=== PATIENT | female | born 1995 | race Caucasian/White ===

== ENCOUNTER 2016-03-17 14:55 | Day surgery (SDC) | payer MEDICAID ==
[2016-03-17] MEDS ORDERED: LIDOCAINE 1% 5 ML SDV ONE (15:14)
[2016-03-17] MEDS ORDERED: PROPOFOL/EMULSION 500 MG/50 ML BOTTLE IV ONE (15:54)
[2016-03-17] MEDS ORDERED: fentaNYL 100 MCG/2 ML INJ ONE ×2 (15:54→17:06)
[2016-03-17] MEDS ORDERED: LIDOCAINE 2% 100 MG/5 ML SYR IVP ONE (15:59)
[2016-03-17] MEDS ORDERED: MIDAZOLAM 2 MG/2 ML VIAL ONE (16:03)
[2016-03-17] MEDS ORDERED: ONDANSETRON 4 MG/2 ML VIAL ONE (16:59)
--- NOTE | 2016-03-17 19:15 | GPN ---
[f rep st] PROCEDURE NOTE DATE OF PROCEDURE: 03/17/2016 PROCEDURE: Colonoscopy with biopsy. INDICATION: The patient is a 20-year-old female who recently had complaints of abdominal pain, no na usea, vomiting, as well as diarrhea. She had a CAT scan performed which did show inflammation of her descending and sigmoid colon. She does have a family history of Crohn disease in a second-degree re lative. She presents for further evaluation. CONSENT: Risks, benefits, and alternatives of the procedure were discussed in great deal with the poncho pineda. Risks of infection, bleeding, perforation, sedation were discussed. All questions were answe red. Informed consent was obtained. MEDICATIONS: Propofol. Please see Anesthesia record for details. ESTIMATED BLOOD LOSS: Insignificant. COLONOSCOPIC EVALUATION: A rectal exam was done and no palpable mass was felt. The scope was introd uced in the rectum and advanced to the cecum, where the ileocecal valve and appendiceal orifice were seen. The quality of her prep in the right colon just fair with some thick, adherent stool seen, whi ch was aggressively flushed and suctioned. The terminal ilium was intubated. It was normal in appearance. Biopsies were taken. The right colon appeared normal and biopsies were taken. There was no disruption of her vascular pat tern. In the left colon, no abnormalities were noted. Biopsies were taken. IMPRESSION: 1. Normal colonoscopy. 2. Normal terminal ileum. Biopsies taken. RECOMMENDATIONS: 1. Follow up on biopsy results. 2. Follow up in the office in 4 weeks. /[id number]/MODL
--- NOTE | 2016-03-17 19:21 | GPN ---
[f rep st] PROCEDURE NOTE DATE OF PROCEDURE: 03/17/2016 PROCEDURE: Esophagogastroduodenoscopy with biopsy. INDICATION: The patient is a 20-year-old female who presents for evaluation of nausea and vomiting. CONSENT: Risks, benefits, alternatives of the procedure were discussed in great detail with the susan ent. Risks of infection, bleeding, perforation, sedation were discussed. All questions were answere d. Informed consent was obtained. MEDICATIONS: Propofol. Please see Anesthesiology record for details. ESTIMATED BLOOD LOSS: Insignificant. ESOPHAGOGASTRODUODENOSCOPY EXAMINATION: The Olympus upper endoscope was introduced into the mouth an d advanced to the esophagus. Proximal and distal esophagus were normal in appearance. The stomach was entered and closely examined, including retroflexed views of angularis, cardia and fu ndus. The patient was noted to have a hiatal hernia. The mucosa in the antrum and body was erythema tous in a patchy distribution and biopsies were taken. The duodenal bulb and second portion of the duodenum were normal in appearance. A biopsy was taken t o rule out celiac sprue. IMPRESSION: 1. Gastritis, status post biopsies. 2. Biopsies taken to rule out celiac sprue. 3. Hiatal hernia. RECOMMENDATIONS: 1. Follow up on biopsy results. 2. Proceed with colonoscopy. /[id number]/MODL
== END 2016-03-17 18:15 | disposition home or self-care (01) ==
LOC: FSGY 14:55
PROVIDERS: ATTEND Internal Medicine Gastroenterology
PROC: 0DBF8ZX Excision of Right Large Intestine, Via Natural or Artificial Opening Endoscopic, Diagnostic (ICD-10-PCS; principal; 2016-03-17 16:30)
PROC: 0DB68ZX Excision of Stomach, Via Natural or Artificial Opening Endoscopic, Diagnostic (ICD-10-PCS; principal; 2016-03-17 16:30)
PROC: 0DB98ZX Excision of Duodenum, Via Natural or Artificial Opening Endoscopic, Diagnostic (ICD-10-PCS; principal; 2016-03-17 16:30)
DX: K29.70 Gastritis, unspecified, without bleeding (principal); K44.9 Diaphragmatic hernia without obstruction or gangrene
CPT/HCPCS: J2001; J2250; J2405; J2704; J3010

== ENCOUNTER 2016-03-30 18:13 | Emergency (ER) | payer MEDICAID ==
--- NOTE | 2016-03-30 18:42 | UCPHY ---
H & P Time Seen by Provider: 03/30/16 18:39 Patient Type: Established HPI/ROS: HPI: 20-year-old female presents to urgent care with chief concern right thumb pain and swelling. Onset at 1:45 p.m. when she slammed her thumb in the car door. Reports bruising, swelling, pain. Denies other injury at time of incident. Took Percocet with some improvement. Right-hand dominant. No weakness, numbness, or tingling. ROS:10 point review of systems is negative other than as stated in HPI Smoking Status: Never smoked Physical Exam: Vital signs stable, reviewed by me General: Awake, alert, calm, cooperative. No acute distress. Head: Normalocephalic. Atraumatic. EENT: PERRLA. EOMI. Neck: Supple, nontender. No midline tenderness, full ROM. Respiratory: Breathing unlabored. CV: Chest nontender, atraumatic. Distal pulses 2+. Brisk cap refill all extremities. GI: Deferred Neuro: Alert. Oriented x 3. Sensation intact all extremities. Skin: Skin warm, dry, intact. No ecchymosis, abrasions, or lacerations. Extremities: No discomfort to palpation of the right shoulder, elbow, wrist. Full ROM. Right hand with ecchymosis, swelling of right thumb only. Decreased range of motion and pain at the MCP J, proximal phalanx, IPJ, and distal phalanx. Constitutional: Initial Vital Signs Temperature (C) 36.9 C 03/30/16 18:30 Heart Rate 70 03/30/16 18:30 Respiratory Rate 16 03/30/16 18:30 Blood Pressure 119/76 03/30/16 18:30 O2 Sat (%) 98 03/30/16 18:30 O2 Delivery Mode Room Air Allergies/Adverse Reactions: metoclopramide HCl [From Reglan] Allergy (Verified 03/30/16 18:46) Home Medications: Medication Instructions Recorded Albuterol 03/30/16 Fluticasone Hfa 110 Mcg [Flovent 03/30/16 110 MCG Hfa MDI (*)] Medical Decision Making - Diagnostics Imaging: X-ray shows a fracture of the distal 1st metacarpal, intra-articular, the distal proximal phalanx, and the distal phalanx. Final report pending at time this dictation ED Course/Re-evaluation: Patient placed in a thumb spica splint. Neurovascular status intact after application Differential Diagnosis: Contusion, fracture Departure - Departure Disposition: Home, Routine, Self-Care Clinical Impression: Crush injury, Thumb fracture, First metacarpal bone fracture Condition: Good Instructions: Thumb Fracture (ED) Additional Instructions: Plan: You may use 600 mg of ibuprofen every 6 hours for fever, inflammation, or pain. Always take ibuprofen with food and stay well hydrated while taking. Do not exceed the maximum allowable dose in a 24 hour period which is 2400 mg. For more severe pain, may use 1 Percocet every 4 hours that you have at home-- Never drink or drive while taking this medication. This medication impairs decision making capacity so do not work or sign important documents while taking. This medication its constipating so drink plenty of fluids and consider an kypn-hde-tyrembr stool softener such as docusate sodium (Colace) while taking this medication. This medication has addictive properties. You should use the least amount for the shortest amount of time. [facility] do not refill narcotic pain medication prescriptions. This is a hospital policy. You will need to follow up as indicated for recheck for further narcotic refills. ice every 1-2 hours for 20 minutes for the the next 2-3 days Keep splint dry Keep arm elevated while at rest Minimize activity with the right thumb until you have been cleared by orthopedist Follow up with orthopedist Dr. Pacheco this week by or Thursday at the latest-When you call to schedule appointment, please let the office know you are an "ER follow up" appointment" Referrals: Andrew Simon DO [Primary Care Provider] - As per Instructions Derek Pacheco MD [Medical Doctor] - As per Instructions - PQRS PQRS Measurement: Not applicable
[2016-03-30 18:46] VITALS: BP 119/76; PULSE 70; RESP 16; TEMP 98.5; O2SAT 98
--- NOTE | 2016-03-30 19:39 | DX ---
RIGHT THUMB, THREE VIEWS HISTORY: Trauma, pain, smashed in door. FINDINGS: Oblique intraarticular fracture of the base of the right thumb distal phalanx corner extend ing into the interphalangeal joint with minimal displacement, 1 mm. No definite first metacarpal frac ture. IMPRESSION: Acute oblique intraarticular fracture of the right thumb distal phalanx base.
== END 2016-03-30 19:21 | disposition home or self-care (01) ==
LOC: CED 18:13
DX: S62.291A Other fracture of first metacarpal bone, right hand, initial encounter for closed fracture (principal); W23.0XXA Caught, crushed, jammed, or pinched between moving objects, initial encounter
CPT/HCPCS: 73140-PO; G0463-PO

== ENCOUNTER 2016-07-01 17:06 | Emergency (ER) | payer MEDICAID ==
[2016-07-01 17:13] VITALS: BP 118/78; TEMP 98.4
[2016-07-01] MEDS ORDERED: IPRATROPIUM/ALBUTEROL 3 ML DEYVIAL IH ONE (17:14)
[2016-07-01] MEDS ORDERED: predniSONE 20 MG TAB PO ONE (17:22)
[2016-07-01] MEDS ORDERED: ALBUTEROL 3 ML DEYVIAL IH ONE ×2 (18:13→18:38)
--- NOTE | 2016-07-01 18:41 | UCPHY ---
H & P Time Seen by Provider: 07/01/16 17:22 Patient Type: Established HPI/ROS: This patient complains of dyspnea that she attributes asthma with associated wheezing. She describes nasal congestion over the past 5 days over the past 3 days developed wheezing and shortness of breath. She has no albuterol inhaler without a spacer that she has been using without lasting improvement. She reports brief relief but has been increasing frequency of her inhaler without significant improvement and came in for evaluation. She explains when has mild asthma she only uses her inhaler 2 puffs twice a day or so has been using every 4 hours today. ROS: No fevers or chills. No other constitutional symptoms. HEENT: Nasal congestion but no other complaints. Pulmonary: No pleuritic pain. No hemoptysis or significant sputum production. She has occasional dry cough with her asthma which is similar to previous episodes. Cardiovascular: No chest pain or lightheadedness. No calf swelling or pain. GI: No complaints integumentary: No rash musculoskeletal: Patient complains of foot pain to the right forefoot. 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 She reports the pain is moderate intensity with slight swelling has been present for 2 days. Pain worsens with walking and notes no other exacerbating factors. 10 point ROS is otherwise negative. Past Medical/Surgical History: Mild asthma. No hospitalizations or ER visits in the last 6 months. Never admitted for asthma. Smoking Status: Never smoked Physical Exam: General Appearance: Pleasant petite young woman Alert, no distress. Eyes: Pupils equal and round no pallor or injection. ENT, Mouth: Mucous membranes moist. Respiratory: Moderate expiratory wheeze bilaterally. No rales or rhonchi noted. Cardiovascular: Regular rate and rhythm. No murmur gallop rub. No calf swelling or tenderness. Neurological: Alert with no focal deficits appreciated. Skin: Warm and dry, no rashes. Extremities are symmetrical, full range of motion. Atraumatic normal except for right foot Right foot: Patient has mild swelling to the forefoot with no significant erythema or skin changes. No warmth to touch. No significant swelling or pain at the 1st metatarsophalangeal joint. No toe abnormalities. No ankle swelling or pain. Psychiatric: Mood and affect normal DIFFERENTIAL DIAGNOSIS: After history and physical exam differential diagnosis was considered for asthma exacerbation, foot sprain, foot fracture, juvenile rheumatoid arthritis Constitutional: Initial Vital Signs Temperature (C) 36.9 C 07/01/16 17:10 Heart Rate 111 H 07/01/16 17:10 Respiratory Rate 20 07/01/16 17:10 Blood Pressure 118/78 07/01/16 17:10 O2 Sat (%) 91 L 07/01/16 17:10 O2 Delivery Mode Room Air Allergies/Adverse Reactions: metoclopramide HCl [From Reglan] Allergy (Verified 03/30/16 18:46) Home Medications: Medication Instructions Recorded Albuterol 03/30/16 Fluticasone Hfa 110 Mcg [Flovent 03/30/16 110 MCG Hfa MDI (*)] Albuterol Hfa Anes Only [Proair 2 puffs IH Q4 PRN #1 mdi 07/01/16 Hfa Icu (*)] predniSONE 40 mg PO DAILY #10 tab 07/01/16 Medical Decision Making - Diagnostics Imaging Results: Foot x-ray: Normal by my interpretation Imaging: I viewed and interpreted images myself ED Course/Re-evaluation: DuoNeb Prednisone 40 mg p. o. 2 more albuterol nebs finally with diminished wheeze increased aeration subjective improvement. Patient is placed in a postop shoe. I counseled regarding foot sprain Discussion: Patient presented with moderate asthma exacerbation improved with treatment. I think that her foot findings are attributable to his sprain from I counseled regarding this. - Data Points Medications Given: Discontinued Medications Albuterol (Proventil Neb) 3 ml IH EDNOW ONE Stop: 07/01/16 18:14 Last Admin: 07/01/16 18:19 Dose: 3 ml Albuterol (Proventil Neb) 3 ml IH EDNOW ONE Stop: 07/01/16 18:39 Last Admin: 07/01/16 18:41 Dose: 3 ml Albuterol/Ipratropium (Duoneb) 3 ml IH EDNOW ONE Stop: 07/01/16 17:15 Last Admin: 07/01/16 17:22 Dose: 3 ml Prednisone (Prednisone) 40 mg PO EDNOW ONE Stop: 07/01/16 17:23 Last Admin: 07/01/16 17:27 Dose: 40 mg Departure - Departure Disposition: Home, Routine, Self-Care Clinical Impression: Asthma exacerbation, Foot pain, right Condition: Good Instructions: Asthma (ED) Additional Instructions: Diagnosis: 1. Asthma exacerbation 2. Right foot pain Your foot x-ray is normal Plan: Prednisone as prescribed take in the morning after breakfast for the next 5 days Albuterol inhaler 2 puffs every 4 hours as needed for cough wheeze or shortness of breath Postop shoe and the foot feels improved Follow up with the [facility] for further evaluation No work until her symptoms improve. Call primary care physician to arrange follow-up appointment for a recheck sometime within the next 3-5 days. Go to the emergency department for any significant worsening despite treatment plan. Referrals: Andrew Simon, [Primary Care Provider] - As per Instructions Grover Whelan DPM [Doctor of Podiatric Medicine] - As per Instructions Stand Alone Forms: Work Excuse Prescriptions: Albuterol Hfa Anes Only [Proair Hfa Icu (*)] 2 puffs IH Q4 PRN #1 mdi PRN Reason: Wheezing predniSONE 40 mg PO DAILY #10 tab - PQRS PQRS Measurement: NA
[2016-07-01 19:07] VITALS: PULSE 130; RESP 18; O2SAT 96
== END 2016-07-01 19:12 | disposition home or self-care (01) ==
LOC: CED 17:06
DX: J45.901 Unspecified asthma with (acute) exacerbation (principal); M79.671 Pain in right foot
CPT/HCPCS: 73620-PO; 87880-PO; 99214-PO; G0463-PO

== ENCOUNTER 2016-11-01 22:42 | Inpatient (IN) | payer MEDICAID ==
[2016-11-01] MEDS ORDERED: NS 1,000 ML IV ONE (23:04)
[2016-11-01 23:11] LABS: % IMMATURE GRANULYOCYTES 0.2 % (0.0-1.1); ABSOLUTE IMMATURE GRANULOCYTES 0.03 10^3/uL (0.00-0.10); ADD DIFF? NO; ADD MORPH? NO; ADD SCAN? NO; ATYPICAL LYMPHOCYTE FLAG 20 (0-99); FRAGMENT RBC FLAG 0 (0-99); HEMATOCRIT 46.8 % (38.0-47.0); HEMOGLOBIN 15.9 g/dL (12.6-16.3); LEFT SHIFT FLG 0 (0-99); LIPEMIA HEMOLYSIS FLAG 90 (0-99); MEAN CELL HEMOGLOBIN 30.8 pg (27.9-34.1); MEAN CELL VOLUME 90.5 fL (81.5-99.8); MEAN PLATELET VOLUME 9.8 fL (8.7-11.7); PLATELET CLUMPS FLAG 0 (0-99); PLATELET COUNT 320 10^3/uL (150-400); RED BLOOD CELL COUNT 5.17 10^6/uL (4.18-5.33); RED CELL DISTRIBUTION WIDTH 13.1 % (11.5-15.2)
--- NOTE | 2016-11-01 23:19 | EDPHY ---
H & P Time Seen by Provider: 11/01/16 22:55 HPI/ROS: CC: Abdominal pain HPI: This 20-year-old female with past medical history of an abnormal CT scan which showed inflammation in her descending and sigmoid colon back in approximately February 2016 at [facility] with subsequent normal colonoscopy presents to the emergency department tonight with severe left-sided upper abdominal pain with nausea, vomiting, and diarrhea which started this afternoon. She states she gets this pain frequently but not this bad and normally she is able to push through it. She says the pain is a squeezing type of pain lasting from a few seconds to minutes at a time and it is rated at 8/10 , "worse than contractions." She has vomited approximately 4 or 5 times today and has had diarrhea as well. She has not noticed blood in the emesis or the stool. She denies fever or chills. She has not had dysuria. Standing makes the pain worse. Her last meal was approximately 7:00 p.m. but she vomited what she tried to eat. No ill contacts. The 1st day of her last menstrual period was last week and she finished her period yesterday. She is 1 para 1. REVIEW OF SYSTEMS: Constitutional: No fever, no chills. Eyes: No discharge. ENT: No sore throat. Respiratory: No cough, no shortness of breath. Cardiac: No chest pain, no palpitations. Gastrointestinal: per HPI. Genitourinary: No hematuria. Musculoskeletal: No back pain. Skin: No rashes. Neurological: No headache. Past Medical/Surgical History: Past medical history includes mild asthma Past surgical history includes an arm surgery and a colonoscopy Family history mother states she has gastroenteritis, maternal grandmother had his stomach problems, and maternal great grandmother had stomach cancer. There are ulcers on her father side. The GI consult in [place] states there is a family history of Crohn's disease. Allergies to Reglan which causes restlessness. Medications: none however she did take a Prilosec tablet today. Social History: Social history: denies tobacco products, denies alcohol, denies marijuana; she has 1 son; she is employed and works on cars. Smoking Status: Never smoked Physical Exam: General Appearance: Alert, moderate distress; tearful. Eyes: Pupils equal and round no pallor or injection. ENT, Mouth: Mucous membranes are moist. Respiratory: There are no retractions, lungs are clear to auscultation. Cardiovascular: Regular rate and rhythm. Gastrointestinal: Abdomen is soft with moderate tenderness to palpation across upper abdomen, Left greater than Right; no masses, bowel sounds normal; no rebound, guarding or rigidity. Neurological: Awake and alert, sensory and motor exams grossly normal. Skin: Warm and dry, no rashes. Musculoskeletal: Neck is supple nontender. Extremities are symmetrical, full range of motion. Psychiatric: Patient is oriented X 3, there is no agitation. DIFFERENTIAL DIAGNOSIS: After history and physical exam differential diagnosis was considered for but not limited to gastritis, biliary colic, inflammatory bowel disease, irritable bowel disease, gastroenteritis, bowel obstruction, constipation. Constitutional: Initial Vital Signs Temperature (C) 98.1 F 11/01/16 22:51 Heart Rate 79 11/01/16 22:51 Respiratory Rate 16 11/01/16 22:51 Blood Pressure 117/86 H 11/01/16 22:51 O2 Sat (%) 97 11/01/16 22:51 O2 Delivery Mode Room Air Allergies/Adverse Reactions: metoclopramide HCl [From Reglan] Allergy (Intermediate, Verified 11/01/16 22:58) Anxiety Home Medications: Medication Instructions Recorded Fluticasone Hfa 110 Mcg [Flovent 03/30/16 110 MCG Hfa MDI (*)] Albuterol Hfa Anes Only [Proair 2 puffs IH Q4 PRN #1 mdi 07/01/16 Hfa Icu (*)] Medical Decision Making - Diagnostics Imaging: Discussed imaging studies w/ call center nurse Radiologist (Thickening of the colon at the splenic flexure, the transverse colon and part of the descending colon with mild to moderate free fluid) ED Course/Re-evaluation: The patient was seen and examined. Vital signs were reviewed. Prior records were reviewed. An IV was started and the patient was given IV fluids with a total of 1 mg of Dilaudid and 8 mg of Zofran IVP throughout her stay in the ER. Her CBC was elevated at 12.59 with a slight left shift. Her comprehensive metabolic panel fluid including lipase was unremarkable. Her serum was negative. A CT scan of her abdomen and pelvis was read as colonic thickening at the splenic flexure, transverse colon, and part of the the descending colon per verbal report of Dr. Owens. Please refer to the final dictated report. She will be placed in observation under the hospitalist service for further evaluation and treatment. Consult/Admit Bed Type: Observation - Data Points Laboratory Results: Laboratory Results 11/01/16 22:55 11/01/16 22:55 11/01/16 11/01/16 11/01/16 22:55 22:55 22:55 WBC RBC Hgb Hct MCV MCH MCHC RDW Plt Count MPV Neut % (Auto) Lymph % (Auto) [place] % (Auto) Eos % (Auto) Baso % (Auto) Nucleat RBC Rel Count Absolute Neuts (auto) Absolute Lymphs (auto) Absolute Monos (auto) Absolute Eos (auto) Absolute Basos (auto) Absolute Nucleated RBC Immature Gran % Immature Gran # ESR Sodium 141 mEq/L mEq/L (134-144) Potassium 3.9 mEq/L mEq/L (3.5-5.2) Chloride 108 mEq/L mEq/L (97-110) Carbon Dioxide 23 mEq/l mEq/l (22-31) Anion Gap 10 mEq/L mEq/L (8-16) BUN 8 mg/dL mg/dL (7-23) Creatinine 0.5 mg/dL L mg/dL (0.6-1.0) Estimated GFR > 60 Glucose 93 mg/dL mg/dL (70-100) Calcium 9.2 mg/dL mg/dL (8.5-10.4) Total Bilirubin 0.5 mg/dL mg/dL (0.1-1.4) Conjugated Bilirubin 0.3 mg/dL mg/dL (0.0-0.5) Unconjugated Bilirubin 0.2 mg/dL mg/dL (0.0-1.1) AST 25 IU/L IU/L (14-46) ALT 34 IU/L IU/L (9-52) Alkaline Phosphatase 67 IU/L IU/L (38-126) C-Reactive Protein < 5.0 mg/L mg/L (<10.0) Total Protein 6.8 g/dL g/dL (6.3-8.2) Albumin 4.1 g/dL g/dL (3.5-5.0) Lipase 137 IU/L IU/L (23-300) Beta HCG, Qual NEGATIVE 11/01/16 22:55 WBC 12.59 10^3/uL H 10^3/uL (3.80-9.50) RBC 5.17 10^6/uL 10^6/uL (4.18-5.33) Hgb 15.9 g/dL g/dL (12.6-16.3) Hct 46.8 % % (38.0-47.0) MCV 90.5 fL fL (81.5-99.8) MCH 30.8 pg pg (27.9-34.1) MCHC 34.0 g/dL g/dL (32.4-36.7) RDW 13.1 % % (11.5-15.2) Plt Count 320 10^3/uL 10^3/uL (150-400) MPV 9.8 fL fL (8.7-11.7) Neut % (Auto) 68.1 % % (39.3-74.2) Lymph % (Auto) 22.6 % % (15.0-45.0) [place] % (Auto) 6.6 % % (4.5-13.0) Eos % (Auto) 2.1 % % (0.6-7.6) Baso % (Auto) 0.4 % % (0.3-1.7) Nucleat RBC Rel Count 0.0 % % (0.0-0.2) Absolute Neuts (auto) 8.56 10^3/uL H 10^3/uL (1.70-6.50) Absolute Lymphs (auto) 2.85 10^3/uL 10^3/uL (1.00-3.00) Absolute Monos (auto) 0.83 10^3/uL H 10^3/uL (0.30-0.80) Absolute Eos (auto) 0.27 10^3/uL 10^3/uL (0.03-0.40) Absolute Basos (auto) 0.05 10^3/uL 10^3/uL (0.02-0.10) Absolute Nucleated RBC 0.00 10^3/uL 10^3/uL (0-0.01) Immature Gran % 0.2 % % (0.0-1.1) Immature Gran # 0.03 10^3/uL 10^3/uL (0.00-0.10) ESR 3 MM/HR MM/HR (0-20) Sodium Potassium Chloride Carbon Dioxide Anion Gap BUN Creatinine Estimated GFR Glucose Calcium Total Bilirubin Conjugated Bilirubin Unconjugated Bilirubin AST ALT Alkaline Phosphatase C-Reactive Protein Total Protein Albumin Lipase Beta HCG, Qual Medications Given: Discontinued Medications Hydromorphone HCl (Dilaudid) 0.5 mg IVP EDNOW ONE Stop: 11/01/16 23:21 Last Admin: 11/01/16 23:27 Dose: 0.5 mg Hydromorphone HCl (Dilaudid) 0.5 mg IVP EDNOW ONE Stop: 11/02/16 01:30 Last Admin: 11/02/16 01:40 Dose: 0.5 mg Sodium Chloride (Ns) 1,000 mls @ 0 mls/hr IV EDNOW ONE; Wide Open PRN Reason: Protocol Stop: 11/01/16 23:05 Last Admin: 11/01/16 23:07 Dose: 1,000 mls Ondansetron HCl (Zofran) 4 mg IVP EDNOW ONE Stop: 11/01/16 23:21 Last Admin: 11/01/16 23:27 Dose: 4 mg Ondansetron HCl (Zofran) 4 mg IVP EDNOW ONE Stop: 11/02/16 01:39 Last Admin: 11/02/16 01:40 Dose: 4 mg Departure - Departure Disposition: [facility] Inpatient Acute Clinical Impression: Abdominal pain, Colonic thickening Condition: Good
[2016-11-01] MEDS ORDERED: ONDANSETRON 4 MG/2 ML VIAL IVP ONE (23:20)
[2016-11-01] MEDS ORDERED: HYDROmorphONE/DILAUDID 1 MG/ML SYR IVP ONE (23:20)
[2016-11-01 23:24] LABS: ALANINE AMINOTRANSFERASE 34 IU/L (9-52); ALBUMIN 4.1 g/dL (3.5-5.0); ALKALINE PHOSPHATASE 67 IU/L (38-126); ANION GAP 10 mEq/L (8-16); ASPARTATE AMINOTRANSFERASE 25 IU/L (14-46); BILIRUBIN,TOTAL 0.5 mg/dL (0.1-1.4); BILIRUBIN-CONJUGATED 0.3 mg/dL (0.0-0.5); BILIRUBIN-UNCONJUGATED 0.2 mg/dL (0.0-1.1); CALCIUM 9.2 mg/dL (8.5-10.4); CARBON DIOXIDE 23 mEq/l (22-31); CHLORIDE 108 mEq/L (97-110); CREATININE 0.5 mg/dL (0.6-1.0); GLOMERULAR FILTRATION RATE > 60; GLUCOSE 93 mg/dL (70-100); POTASSIUM 3.9 mEq/L (3.5-5.2); SODIUM 141 mEq/L (134-144); TOTAL PROTEIN 6.8 g/dL (6.3-8.2)
[2016-11-02] MEDS ORDERED: IOPAMIDOL (ISOVUE-300) 100 ML BTL ONE (00:23)
[2016-11-02 00:50] LABS: SEDIMENTATION RATE 3 MM/HR (0-20)
[2016-11-02] MEDS ORDERED: HYDROmorphONE/DILAUDID 1 MG/ML SYR IVP ONE (01:29)
[2016-11-02] MEDS ORDERED: ONDANSETRON 4 MG/2 ML VIAL ONE (01:36)
[2016-11-02] MEDS ORDERED: ONDANSETRON 4 MG/2 ML VIAL IVP ONE (01:38)
[2016-11-02] MEDS ORDERED: ONDANSETRON DISINTEGRATING 4 MG TAB PO PRN (08:07)
--- NOTE | 2016-11-02 08:08 | GHP ---
[f rep st] HISTORY AND PHYSICAL DATE OF ADMISSION: 11/01/2016 CHIEF COMPLAINT: Abdominal pain. HISTORY OF PRESENT ILLNESS: This is a 20-year-old female, who for some time has had a history of in termittent episodes that consist of abdominal pain, it is mostly epigastric, as well as nausea, and some vomiting, and diarrhea. She has not seen any blood in her stool though. This happens about ev bari other week and lasts for a couple days. They have been increasing in severity lately. Yesterda y, she developed the same symptoms, but they were worse than normal. Again, she has not had any blo od in her stool. No fevers or chills. Patient had similar episode in February of 2016, at [facility], where she had a CAT scan gabriel t showed inflammatory changes in the colon. She had a colonoscopy, but that was 2 weeks after her s ymptoms had resolved, and that was negative and biopsies also were negative. REVIEW OF SYSTEMS: A 10-point review of systems was reviewed and other than stated above was negati ve. PAST MEDICAL HISTORY: Asthma. MEDICATIONS: Reviewed. SOCIAL HISTORY: No smoking. Does have a child. FAMILY HISTORY: Some stomach problems on her mother side, and there is a family history of Crohn di sease as well. PHYSICAL EXAM: VITAL SIGNS: Afebrile, blood pressure is 118/71, heart rate is 67, oxygen saturatio n 97% on 2 L. GENERAL: The patient is well developed, in no apparent distress. HEENT: Nonicteric sclerae. Extraocular movements intact. Moist mucous membranes. NECK: Supple. No thyromegaly. LUNGS: Good effort. Clear to auscultation bilaterally. CARDIOVASCULAR: Regular rate and rhythm. No murmurs or gallops. ABDOMEN: Positive bowel sounds. Soft. Mild epigastric tenderness. No re bound or guarding. EXTREMITIES: No clubbing, cyanosis, or edema. SKIN: Without rash, dry, intact . NEUROLOGIC: Alert and oriented x3. Moving all 4 extremities equally. PSYCH: Normal mood and affect. LABS: White blood cell count slightly elevated at 12. Chemistries normal. Beta HCG is negative. CT scan of the abdomen and pelvis shows inflammatory changes, which is marked thickening and inflamm ation of the transverse colon to the splenic flexure, and [id number] ascites. ASSESSMENT: This is a 20-year-old female with a history of intermittent abdominal pain, suspicious for inflammatory bowel disease, presenting with worsening episode, and CT scan changes. PLAN: Rule out inflammatory bowel disease, although, this is a similar situation to February, the c olonoscopy at that point was done several weeks after her symptoms and was negative. I think that w ith the marked changes on her CAT scan, and a lack of diagnosis, would consider repeat colonoscopy d uring this admission to get a diagnosis. I will contact gastroenterology this morning. Her symptom s are improving. We will continue IV fluids, and pain and nausea control. /[id number]/MODL
[2016-11-02] MEDS ORDERED: D5W 1/2 NS W/ 20 KCl/L 1,000 ML IV SCH (08:15)
[2016-11-02] MEDS ORDERED: ALBUTEROL HFA ANES ONLY 200 PUFFS/8.5 GM MDI IH PRN (10:13)
[2016-11-02] MEDS ORDERED: FLUTICASONE HFA 110 MCG MDI IH PRN (10:13)
[2016-11-02] MEDS ORDERED: ALBUTEROL 200 PUFFS/18 GM MDI IH PRN (10:21)
[2016-11-02] MEDS ORDERED: GOLYTELY 4000 ML BTL PO ONE ×2 (10:56→15:15)
--- NOTE | 2016-11-02 11:01 | HOSPPROG ---
Hospitalist Progress Note Assessment/Plan: 20y female with abd pain. D/W Gi and Dr Siddiqui. #Abd pain abnormal CT plan for colonoscopy in am bowel prep today #N/V/D none since admission #Dispo likely after colonoscopy cont to follow Subjective: Still having abd pain. Sleeping. Objective: Vital Signs Temp Pulse Resp BP Pulse Ox 36.9 C 52 L 14 110/56 L 98 11/02/16 07:52 11/02/16 07:52 11/02/16 07:52 11/02/16 07:52 11/02/16 07:52 - Physical Exam Constitutional: appears nourished, uncomfortable Eyes: PERRL, anicteric sclera Ears, Nose, Mouth, Throat: moist mucous membranes, hearing normal Cardiovascular: No JVD, No edema Respiratory: no respiratory distress Gastrointestinal: tenderness, No ascites Skin: warm, normal color Musculoskeletal: full muscle strength Neurologic: AAOx3 Psychiatric: not anxious, not encephalopathic ICD10 Worksheet Patient Problems: Problems Problem Status Onset Abdominal pain Acute Colonic thickening Acute
[2016-11-02] MEDS: HYDROmorphONE/DILAUDID 1 MG/ML SYR IVP PRN ×3 (11:52→21:03)
[2016-11-02] MEDS: ONDANSETRON 4 MG/2 ML VIAL IVP PRN (17:23)
[2016-11-02] MEDS: ACETAMINOPHEN 325 MG TAB PO PRN (20:05)
[2016-11-02] MEDS ORDERED: PROMETHAZINE HCL 25 MG/ML INJ IVP PRN (20:45)
[2016-11-03] MEDS ORDERED: PROPOFOL/EMULSION 500 MG/50 ML BOTTLE IV ONE (09:51)
[2016-11-03] MEDS ORDERED: MIDAZOLAM 2 MG/2 ML VIAL ONE (09:51)
--- NOTE | 2016-11-03 10:04 | PDANEPAE ---
ANE Past Medical History - Cardiovascular History Hx Hypertension: No Hx Arrhythmias: No Hx Chest Pain: No Hx Coronary Artery / Peripheral Vascular Disease: No Hx CHF / Valvular Disease: No Hx Palpitations: No Cardiovascular History Comment: hx heart murmur, no audible in preop - Pulmonary History Hx COPD: No Hx Asthma/Reactive Airway Disease: Yes Hx Recent Upper Respiratory Infection: No Hx Oxygen in Use at Home: No Hx Sleep Apnea: No Sleep Apnea Screening Result - Last Documented: Negative Pulmonary History Comment: asthma, used albuterol in preop - Neurologic History Hx Cerebrovascular Accident: No Hx Seizures: No Hx Dementia: No - Endocrine History Hx Diabetes: No - Renal History Hx Renal Disorders: Yes Renal History Comment: kidney stones while - Liver History Hx Hepatic Disorders: No - Neurological & Psychiatric Hx Hx Neurological and Psychiatric Disorders: No - Cancer History Hx Cancer: No - GI History Hx Gastrointestinal Disorders: Yes Gastrointestinal History Comment: acid reflux - Chronic Pain History Chronic Pain: No - Surgical History Prior Surgeries: arm broken -conscious sedation ANE Patient History - Allergies Allergies/Adverse Reactions: metoclopramide HCl [From Reglan] Allergy (Intermediate, Verified 11/01/16 22:58) Anxiety - Home Medications Home Medications: Albuterol Hfa Anes Only [Proair Hfa Icu (*)] 1 - 2 puffs IH Q4-6PRN PRN [Last Taken Unknown] Fluticasone Hfa 110 Mcg [Flovent 110 MCG Hfa MDI (*)] 2 puffs IH DAILY PRN 11/02 [Last Taken Unknown] - Smoking Hx Smoking Status: Never smoked ANE Labs/Vital Signs - Labs Result Diagrams: 11/01/16 22:55 11/01/16 22:55 - Vital Signs Blood Pressure: 85/57 Heart Rate: 58 Respiratory Rate: 12 O2 Sat (%): 96 Height: 149.86 cm Weight: 49.668 kg ANE Physical Exam - Airway Mallampati Score: Class 1 Mouth exam: normal dental/mouth exam - Pulmonary Pulmonary: no respiratory distress, no rales or rhonchi, clear to auscultation - Cardiovascular Cardiovascular: regular rate and rhythym, no murmur, rub, or gallop - ASA Status ASA Status: I ANE Anesthesia Plan Anesthesia Plan: MAC
[2016-11-03] MEDS ORDERED: LR 500 ML IV PRN (10:05)
[2016-11-03] MEDS ORDERED: ONDANSETRON 4 MG/2 ML VIAL IVP PRN (10:05)
[2016-11-03] MEDS ORDERED: DEXAMETHASONE 4 MG/ML VIAL IVP PRN (10:05)
[2016-11-03] MEDS ORDERED: NALOXONE HCL 0.4 MG/ML INJ IVP PRN (10:05)
--- NOTE | 2016-11-03 10:31 | POSTANESTH ---
Post Anesthetic Evaluation Cardiovascular Status: Normal, Stable Respiratory Status: Normal, Stable Level of Consciousness/Mental Status: Can Participate in Eval, Mildly Sleepy, Arousable Pain Control: Adequate, Prn Tx Ordered Nausea/Vomiting Control: Adequate, Prn Tx Ordered Complications Possibly Related to Anesthesia: None Noted
--- NOTE | 2016-11-03 10:40 | SUROPNOTE ---
[facility] Operative Report - Surgery Colonoscopy Normal colon and terminal ilium Biopsies taken A/ Cause of sxm unclear no e/o IBD, consider other autoimmune or rheumatologic process (lupus, vasculitis?) vs IBS P/ Supportive care with IVF, antiemetics, trial of Levsin
[2016-11-03] MEDS ORDERED: fentaNYL 100 MCG/2 ML INJ ONE ×2 (10:53→11:25)
[2016-11-03] MEDS: fentaNYL 100 MCG/2 ML INJ IVP PRN ×4 (11:00→11:46)
--- NOTE | 2016-11-03 11:13 | GCON ---
[f rep st] CONSULTATION COLONOSCOPY REPORT DATE OF CONSULTATION: 11/03/2016 REFERRING PHYSICIAN: Nohemi Ha NP CHIEF COMPLAINT: Abdominal pain. HISTORY OF PRESENT ILLNESS: I am asked to see this patient in consultation by Nohemi Ha, for chi ef complaint of abdominal pain and diarrhea. She is a 20-year-old previously seen and evaluated by my partner, Dr. Phillips, for similar symptoms. In March of this year, she underwent a colonoscopy th at appeared normal, although she did have a CT scan prior that showed suggestion of possible proctit is and thickening of the left colon. She states that for the past year or so she has been having "f lare" of these symptoms where she gets diarrhea, abdominal pain, nausea, and vomiting. She never se es blood in her stools. There are never fevers. She had a bout again with significant enough pain that she came to the emergency room. CT scan showed some thickening involving the sigmoid to spleni c flexure. Ileum looked normal. The patient is having pain at this point, still with some nausea. She has no rashes, no joint pain. There is a family history for Crohn disease. She states that sh didier feels well in between these episodes. ALLERGIES: She is intolerant to Reglan. CURRENT MEDICATIONS: She takes Flovent and inhalers. PAST MEDICAL HISTORY: Noted for asthma. SOCIAL HISTORY: She does not smoke. FAMILY HISTORY: Some kind of abdominal symptom on her mother's side. Apparently a family history f or Crohn disease. REVIEW OF SYSTEMS: I performed a complete review of systems, which is negative, except for the pert inent positives and negatives noted above in the HPI. PHYSICAL EXAM: VITAL SIGNS: She is currently afebrile at 36.8. BP 85/77, pulse 58. CONSTITUTIONA L: She is alert and oriented. EYES: Have no scleral icterus. HEENT: No oral lesions. CARDIOVAS CULAR: Regular rate and rhythm. CHEST: Clear to auscultation bilaterally. ABDOMEN: Tender, but without rebound. No masses. EXTREMITIES: Normal. NEUROLOGIC: Nonfocal. SKIN: No obvious rashe s. LABORATORY DATA: Shows slightly elevated white count of 12 with hematocrit normal at 46.8, normal p latelets. Sed rate is normal at 3. Chemistry is essentially normal. CT scan of the abdomen shows some thickening involving the transverse colon to the splenic flexure w ith some ascites. ASSESSMENT: Patient with intermittent episodes of abdominal pain associated with diarrhea, nausea a nd vomiting; however, no blood in the stools. Concerning for possible inflammatory process. Patient did have a negative colonoscopy earlier this year, but it was not during a flare. I think it may b e reasonable to repeat endoscopy, given the CT scan findings to see if there are any active inflamma tory changes in the colon. PLAN: Will proceed with colonoscopy. Further recommendations to follow. Thank you for this consult. /[id number]/MODL
--- NOTE | 2016-11-03 11:18 | GPN ---
[f rep st] PROCEDURE NOTE DATE OF PROCEDURE: 11/03/2016 PROCEDURE PERFORMED: Colonoscopy with biopsy. INSTRUMENT USED: CELtrak colonoscope. MEDICINES GIVEN: Per anesthesiologist. INDICATIONS: Patient is a 20-year-old with recurrent episodes of abdominal pain, nausea, vomiting, diarrhea, referred for a colonoscopy with abnormal CT scan. Prior to procedure, exam performed incl uding auscultation of the heart and lungs within normal limits. Patient's mental status was appropr iate. Procedure was explained including the risks of bleeding, perforation, or effects of sedation. She gave her informed consent. FINDINGS: Patient was placed in left lateral decubitus position. Perianal exam performed and was n ormal. Instrument inserted in the rectum and advanced by direct visualization to the area of the ce cum, which was easily reached identified by the presence of the ileocecal valve, appendiceal orifice , and the confluence of the tenia. From this area, the scope was slowly withdrawn with inspection o f the colonic mucosa. The prep was adequate for examination. Terminal ilium was intubated and appe ared normal. The scope was slowly withdrawn with inspection of colonic mucosa. Of note, the coloni c mucosa appeared normal throughout the entire colon. Random biopsies were taken in the transverse and left side of the colon. Retroflexion revealed hemorrhoids. Scope was then straightened and rem eleanor from the patient who tolerated procedure well. Time spent was approximately 15 minutes. ASSESSMENT: Endoscopically normal-appearing colonoscopy without evidence of mucosal disease or coli tis. It is unclear the cause of CT scan findings, although at this point, cannot make the diagnosis for active inflammatory bowel disease. Could consider other autoimmune issues such as vasculitis o r lupus. I doubt relapsing Mediterranean fever as she has not had fever with this. PLAN: 1. Will await biopsies to assess for any underlying colitis or microscopic colitis. 2. Would treat symptomatically for now with any nausea, IV fluids, antidiarrheals until she resolve s from this episode. May consider further evaluation for an autoimmune process. From a GI standpoi nt, we can treat for functional symptoms. Consider Michael. Thank you for this consult. /[id number]/MODL
[2016-11-03] MEDS: HYOSCYAMINE SULFATE 0.125 MG TAB PO PRN ×2 (13:26→20:49)
--- NOTE | 2016-11-03 14:33 | HOSPPROG ---
Hospitalist Progress Note Assessment/Plan: 20y female with abd pain. D/W Gi, RN. #Abd pain abnormal CT colonoscopy today normal pain conts with clear liquids will evaluate gallbladder US and HIDA ordered #N/V/D conts with PO intake cont supportive care cont etiol #Dispo unclear, needs further workup for abd pain cont to follow Subjective: Still having significant abd pain with liquids. Some vomitiing. Objective: Vital Signs Temp Pulse Resp BP Pulse Ox 36.4 C 56 L 16 102/59 L 100 11/03/16 13:20 11/03/16 13:20 11/03/16 13:20 11/03/16 13:20 11/03/16 13:20 11/02/16 11/03/16 11/04/16 05:59 05:59 05:59 Intake Total 920 310 Balance 920 310 - Physical Exam Constitutional: appears nourished, uncomfortable Eyes: PERRL, anicteric sclera Ears, Nose, Mouth, Throat: moist mucous membranes, hearing normal Cardiovascular: regular rate and rhythym, No JVD Respiratory: no respiratory distress, reduced air movement Gastrointestinal: tenderness, No ascites, No distension Skin: warm, normal color Musculoskeletal: full muscle strength, no joint effusions Neurologic: AAOx3 Psychiatric: not anxious, not encephalopathic ICD10 Worksheet Patient Problems: Problems Problem Status Onset Abdominal pain Acute Colonic thickening Acute
[2016-11-03] MEDS: ACETAMINOPHEN 325 MG TAB PO PRN (15:25)
[2016-11-03] MEDS: ONDANSETRON 4 MG/2 ML VIAL IVP PRN (18:18)
[2016-11-03] MEDS: HYDROmorphONE/DILAUDID 1 MG/ML SYR IVP PRN (18:18)
--- NOTE | 2016-11-04 08:52 | HOSPPROG ---
Hospitalist Progress Note Assessment/Plan: Patient is a 20-year-old female who has had intermittent intermittent episodes of abdominal pain mainly epigastric. She has nausea and some vomiting with associated diarrhea. Today is my 1st encounter with the patient. Chart reviewed. #Abd pain abnormal CT colonoscopy stable pain ongoing US shows some ascites and left pleural effusion HIDA pending trial of Levsin #ascites unclear of the etiology of this may have some type of autoimmune process that needs f/u biopsies pending and results available likely next week #N/V/D continue supportive care #Dispo f/u with HIDA scan/ will aim to dc later today if she can eat and drink/ will recommend f/u with a learning and development analyst to see if she has some type of autoimmune disease causing her symptoms Subjective: Jumana is frustrated about no specific answers with her abdominal pain. Says the pain moves across her lower abdomen area. Objective: Vital Signs Temp Pulse Resp BP Pulse Ox 36.6 C 63 14 107/61 97 11/03/16 22:10 11/03/16 22:10 11/03/16 22:10 11/03/16 22:10 11/03/16 22:10 11/03/16 11/04/16 11/05/16 05:59 05:59 05:59 Intake Total 920 310 Balance 920 310 - Physical Exam Constitutional: no apparent distress, other (slender) Eyes: PERRL Ears, Nose, Mouth, Throat: hearing normal Cardiovascular: regular rate and rhythym Respiratory: no respiratory distress Gastrointestinal: normoactive bowel sounds, soft, non-tender abdomen Skin: warm, normal color Musculoskeletal: full muscle strength Neurologic: AAOx3 Psychiatric: interacting appropriately ICD10 Worksheet Patient Problems: Problems Problem Status Onset Abdominal pain Acute Colonic thickening Acute
[2016-11-04 09:59] VITALS: BP 120/62; PULSE 57; RESP 16; TEMP 99.1; O2SAT 96
[2016-11-04] MEDS ORDERED: SINCALIDE 5 MCG VIAL IJ ONE (10:39)
--- NOTE | 2016-11-04 12:55 | SOAPPROG ---
SOAP Progress Note Assessment/Plan: Assessment: Abd pain abnormal CT scan but no inflammatory changes seen on colonoscopy. Consider other inflammatory or autoimmune process Plan: Await biopsy results Supportive care for symptoms OK to d/c when taking PO and pain controlled Suggest rheum consult Will sign off 11/04/16 12:53 Objective: Vital Signs Temp Pulse Resp BP Pulse Ox 37.3 C 57 L 16 120/62 96 11/04/16 08:00 11/04/16 08:00 11/04/16 08:00 11/04/16 08:00 11/04/16 08:00 11/03/16 11/04/16 11/05/16 05:59 05:59 05:59 Intake Total 920 310 Balance 920 310 Physical Exam - Physical Exam General Appearance: WD/WN Respiratory: No respiratory distress Cardiac/Chest: regular rate, rhythm Abdomen: non-tender, No distended ICD10 Worksheet Patient Problems: Problems Problem Status Onset Abdominal pain Acute Colonic thickening Acute
--- NOTE | 2016-11-04 17:39 | ASDISCHSUM ---
Discharge Information Plan Status:Home with No Needs Medically Cleared to Leave: Discharge Date:11/04/2016 03:56 PM CM D/C Disposition:Home, Routine, Self-Care ADT D/C Disposition:Home, Routine, Self-Care Projected Discharge Date:11/04/2016 03:56 PM Transportation at D/C:Family Discharge Delay Reason: Follow-Up Date:11/04/2016 03:56 PM Discharge Slot: Final Diagnosis: Placement Information Patient Contact Information Contact Name:IRON Relationship:Grandparent Address: City: [facility] Phone: [facility]/[place] Code: Email: Financial Information Financial Class:MD Primary Plan Desc:[employer] [place] Primary Plan Number:[id number] Secondary Plan Desc: Secondary Plan Number: Assessment Information Intervention Information
--- NOTE | 2016-11-04 19:23 | GDS ---
[f rep st] DISCHARGE SUMMARY DISCHARGE DIAGNOSES: 1. Abdominal pain. 2. Ascites. 3. Nausea vomiting and diarrhea. CONSULTATIONS: Dr. Liz Pittman. BRIEF HISTORY: The patient is a 20-year-old female, who has had intermittent episodes of abdominal pain. It is mainly in the epigastric area. She also has associated nausea, vomiting, and diarrhea. She has never seen any blood in her stool. She had a similar episode February 2016. She was seen at [facility] , and had a CT scan that showed inflammatory changes in the colon. During this admission she had a CT of the abdomen that showed marked thickening of the transverse colon through the splenic flexure with surrounding inflammation ascites to consider colitis or consider Crohn's disease. She had no evidence of appendicitis, abscess, or bowel obstruction. She was subsequently seen and evaluated by Dr. Pittman with Gastroenterology. She had a colonoscopy performed. It was normal appearing without any evidence of mucosal disease or colitis. In addition, she had an abdominal ultrasound performed, which showed a mild amount of ascites with small right pleural effusion noted. She had no evidence of gallstones. A HIDA scan was performed, which was normal HIDA scan and normal ejection fraction. Today, she is able to eat small amounts of food. Reviewed her care with Dr. Pittman, who recommended that she get further evaluation by a cinder dump crane operator to see if this is an autoimmune process. HOSPITAL COURSE: 1. Abdominal pain: She is eating and drinking this afternoon. She will get a prescription of Levsin and Zofran to see if this helps her symptoms. 2. Ascites: I am unclear of the etiology of this. In addition, she has a small effusion. Will have her get further evaluation by a cinder dump crane operator. 3. Nausea, vomiting, diarrhea. None further. PENDING LABS: Multiple biopsies are pending. CONDITION ON DISCHARGE: Stable. Blood pressure is 107/61, O2 sats on room air 97%, respiratory rate is 14, pulse 63, temperature is 36.6 Celsius. MEDICATIONS AT DISCHARGE: Please see the EMR. DISCHARGE INSTRUCTIONS: 1. Follow up with cinder dump crane operator sooner than later. 2. Follow up with Dr. Simon and get further evaluation of her ascites and effusion. Greater than 30 minutes discharging and coordinating the patient's care. /[id number]/MODL MTDD
== END 2016-11-04 15:56 | disposition home or self-care (01) | DRG 392 ==
LOC: CED 22:42 → CEDHOLD 11-02 01:34 → F3E 11-02 03:00 → OBSVTOIN 11-02 08:07
PROVIDERS: ADMIT Internal Medicine; ATTEND Internal Medicine
PROC: 0DBG8ZX Excision of Left Large Intestine, Via Natural or Artificial Opening Endoscopic, Diagnostic (ICD-10-PCS; principal; 2016-11-03 10:00)
PROC: 0DBL8ZX Excision of Transverse Colon, Via Natural or Artificial Opening Endoscopic, Diagnostic (ICD-10-PCS; principal; 2016-11-03 10:00)
CPT/HCPCS: 74177-PO; 80048-PO; 80076-PO; 83690-PO; 84703-PO; 85025-PO; 85652-PO; 96374; A9537; J1170; J2250; J2405; J2550; J2704; J3010; Q9967

== ENCOUNTER 2016-11-29 19:14 | Emergency (ER) | payer MEDICAID ==
[2016-11-29 19:25] VITALS: RESP 16; TEMP 98.2
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
[2016-11-29 20:50] VITALS: BP 128/65; PULSE 85; O2SAT 96
== END 2016-11-29 20:55 | disposition home or self-care (01) ==
LOC: CED 19:14
DX: R60.9 Edema, unspecified (principal); J45.909 Unspecified asthma, uncomplicated
CPT/HCPCS: 73110-PO; 73130-PO

== ENCOUNTER 2016-12-09 19:15 | Emergency (ER) | payer MEDICAID ==
[2016-12-09 19:25] VITALS: TEMP 98.1
[2016-12-09] MEDS ORDERED: DEXAMETHASONE 10 MG/ML VIAL IVP ONE (19:34)
[2016-12-09] MEDS ORDERED: ONDANSETRON 4 MG/2 ML VIAL IVP ONE (19:43)
[2016-12-09] MEDS ORDERED: NS 1,000 ML IV ONE (19:43)
[2016-12-09] MEDS ORDERED: KETOROLAC 15 MG/1 ML SDV IVP ONE ×2 (19:43→20:47)
[2016-12-09 20:04] LABS: % IMMATURE GRANULYOCYTES 0.1 % (0.0-1.1); ABSOLUTE IMMATURE GRANULOCYTES 0.01 10^3/uL (0.00-0.10); ADD DIFF? NO; ADD MORPH? NO; ADD SCAN? NO; ATYPICAL LYMPHOCYTE FLAG 20 (0-99); FRAGMENT RBC FLAG 0 (0-99); HEMATOCRIT 35.7 % (38.0-47.0); HEMOGLOBIN 11.9 g/dL (12.6-16.3); LEFT SHIFT FLG 0 (0-99); LIPEMIA HEMOLYSIS FLAG 80 (0-99); MEAN CELL HEMOGLOBIN 30.8 pg (27.9-34.1); MEAN CELL HEMOGLOBIN CONCENTR. 33.3 g/dL (32.4-36.7); MEAN CELL VOLUME 92.5 fL (81.5-99.8); MEAN PLATELET VOLUME 9.5 fL (8.7-11.7); PLATELET CLUMPS FLAG 0 (0-99); PLATELET COUNT 247 10^3/uL (150-400); RED BLOOD CELL COUNT 3.86 10^6/uL (4.18-5.33); RED CELL DISTRIBUTION WIDTH 13.6 % (11.5-15.2)
[2016-12-09] MEDS ORDERED: FAMOTIDINE 20 MG/2 ML SDV IVP ONE (20:47)
--- NOTE | 2016-12-09 21:05 | EDPHY ---
H & P Time Seen by Provider: 12/09/16 19:24 HPI/ROS: This patient complains of facial edema and headache. She explains that she awakened this morning with facial swelling initially in the right periorbital area and through the day and extended across the bridge of her nose to the left periorbital region as well and slightly to her forehead. She reports initially having no headache, only the swelling and no association pain but she gradually developed a frontal headache that is throbbing in nature 7/10 intensity, worse with movement associated with hyperacusis, similar to prior migraine headaches. She drink some caffeine-a Pepsi in a Tea in hopes of improving her headache as this typically works for her migraines without improvement and came in for evaluation of the facial swelling and headache. Her boyfriend drove her in by private vehicle for evaluation. ROS: No fevers or chills. No other constitutional symptoms HEENT: No trauma. While she has a right cheek piercing an nose piercing these are longstanding with no so symptoms at the site of the piercings. She has no recent URI symptoms or nasal congestion. She noticed no sinus pain or pressure prior to the onset of the facial swelling. She does wear makeup-eye makeup Neuro: No visual changes. No numbness tingling or focal weakness. No confusion. Psychiatric: She is anxious with her symptoms. Integumentary: The patient has acne on her forehead but denies any significant pain at the sites of the acne. No swelling elsewhere Pulmonary: The patient felt some mild dyspnea that reminded her of her asthma symptoms on the way to the clinic in use albuterol inhaler in the car with resolution of her dyspnea. Cardiovascular: No lightheadedness or heart palpitations. No chest pain. GI: She complains of nausea accompany her headache which often occurs with her migraines. No vomiting. No abdominal pain. Musculoskeletal: Neck pain. No trauma. Complete review of symptoms is otherwise negative. Past Medical/Surgical History: Asthma Migraine headaches Smoking Status: Never smoked Physical Exam: Physical exam: Vital signs are normal General: Patient is in no acute distress. HEENT: Is no external evidence of trauma on exam. She has angioedema in the periorbital region bilaterally extending over the bridge of her nose. There is a piercing the right cheek without erythema or fluctuance. No tenderness at that site. She had a nose piercing without tenderness. Oropharynx: No angioedema. No dysphonia, drooling or stridor. Nose atraumatic. Ears: Clear bilaterally with no hemotympanum. Oropharynx: No dental trauma or malocclusion. No intraoral lacerations. I appreciate no significant sinus tenderness to percussion. Eyes: Pupils are equal and reactive to light. Extraocular motions are intact. Optic fundi: Clear with no papilledema or hemorrhage. Lungs: Clear to auscultation bilaterally Neck: Supple no meningismus. Cardiac: Regular rate and rhythm no murmur gallop or rub. Abdomen: Soft nontender no organomegaly Neuro: GCS of 15. Cranial nerves II through XII intact. Cerebellar exam is normal as judged by symmetric rapid hand movements bilaterally. No pronator drift. No sensory or motor deficits are appreciated. Skin: [id number] acne to the upper forehead without significant tenderness fluctuance, erythema or warmth to touch. Initial differential diagnosis: Allergic angioedema likely from makeup, Migraine, tension headache, sinusitis, doubt cellulitis from piercing or acne Constitutional: Initial Vital Signs Temperature (C) 36.7 C 12/09/16 19:23 Heart Rate 83 12/09/16 19:23 Respiratory Rate 16 12/09/16 19:23 Blood Pressure 128/94 H 12/09/16 19:23 O2 Sat (%) 99 12/09/16 19:23 O2 Delivery Mode Room Air Allergies/Adverse Reactions: metoclopramide HCl [From Reglan] Allergy (Intermediate, Verified 12/09/16 19:23) Anxiety Home Medications: Medication Instructions Recorded Albuterol Hfa Anes Only [Proair 1 - 2 puffs IH Q4-6PRN PRN 11/02/16 Hfa Icu (*)] Ondansetron Odt [Zofran Odt] 4 - 8 mg PO Q4PRN PRN #4 tab 12/09/16 diphenhydrAMINE [Benadryl 25 MG 25 mg PO 12/09/16 (*)] predniSONE 40 mg PO DAILY #8 tab 12/09/16 MDM/Departure - MDM Diagnostics: CBC reveals normal white blood cell count. A very mild anemia. Medications Given: Discontinued Medications Dexamethasone (Decadron Injection) 10 mg IVP EDNOW ONE Stop: 12/09/16 19:35 Last Admin: 12/09/16 19:38 Dose: 10 mg Diphenhydramine HCl (Benadryl Injection) 25 mg IVP EDNOW ONE Stop: 12/09/16 19:43 Last Admin: 12/09/16 19:55 Dose: 25 mg Famotidine (Pepcid) 20 mg IVP EDNOW ONE Stop: 12/09/16 20:48 Last Admin: 12/09/16 20:57 Dose: 20 mg Sodium Chloride (Ns) 1,000 mls @ 0 mls/hr IV ONCE ONE; Wide Open PRN Reason: Protocol Stop: 12/09/16 19:44 Last Admin: 12/09/16 19:54 Dose: 1,000 mls Ketorolac Tromethamine (Toradol) 15 mg IVP EDNOW ONE Stop: 12/09/16 19:44 Last Admin: 12/09/16 19:55 Dose: 15 mg Ketorolac Tromethamine (Toradol) 15 mg IVP EDNOW ONE Stop: 12/09/16 20:48 Last Admin: 12/09/16 20:57 Dose: 15 mg Ondansetron HCl (Zofran) 4 mg IVP EDNOW ONE Stop: 12/09/16 19:44 Last Admin: 12/09/16 19:55 Dose: 4 mg ED Course/Re-evaluation: IV, monitor, Decadron 10 mg IV, Benadryl 25 mg IV, Toradol 15 mg IV, Zofran 4 mg IV On recheck at approximately 20/40 patient reports headache down to 5/10 intensity and nausea tall. Her angioedema has reduced in severity After reviewing CBC proceeded with Pepcid 20 mg IV and another 15 mg of Toradol IV At 9:43 p.m. the patient's headache is entirely resolved. Swelling has continued to reduce & the patient feels well. She developed no recurrence of dyspnea that she had prior to arrival while here in the clinic and time discharge is ambulatory with no headache significant reduction or swelling in feels well. Discussion: I think this patient had an allergic angioedema that then caused anxiety, tension headache going in to migraine type headache. Given lack of local cellulitic features on exam and a normal white blood cell count, I doubt either cellulitic or sinusitis infectious processes. I counseled the patient regarding her angioedema and suggested that she hold off on using makeup until the edema resolves and then switch to hypoallergenic makeup - Depart Disposition: Home, Routine, Self-Care Clinical Impression: Angio-edema Qualifiers: Encounter type: initial encounter Qualified Code(s): T78.3XXA - Angioneurotic edema, initial encounter Migraine Qualifiers: Migraine type: without aura Status migrainosus presence: without status migrainosus Intractability: not intractable Qualified Code(s): G43.009 - Migraine without aura, not intractable, without status migrainosus Condition: Good Instructions: Migraine Headache (ED), Angioedema (ED) Additional Instructions: Diagnosis: Angioedema-face 2. Migraine Plan: Remove her facial cup and avoid facial makeup with plan to switch to a hypoallergenic type of facial makeup or avoid using it. This may be an allergic reaction to the makeup. [id number] mg per 6 hours as needed for swelling or itching. Prednisone in the morning for the next few days after breakfast as prescribed Tylenol and caffeine if he developed recurrent headache Zofran if needed for nausea Follow up with primary care physician for recheck in 2-5 days. Return for any significant worsening despite the treatment plan Stand Alone Forms: Work Excuse Prescriptions: Ondansetron Odt [Zofran Odt] 4 - 8 mg PO Q4PRN PRN #4 tab PRN Reason: Vomiting predniSONE 40 mg PO DAILY #8 tab Referrals: Andrew Smion DO [Primary Care Provider] - As per Instructions
[2016-12-09 21:46] VITALS: BP 115/66; PULSE 69; RESP 14; O2SAT 95
== END 2016-12-09 21:54 | disposition home or self-care (01) ==
LOC: CED 19:15
PROC: 3E0337Z Introduction of Electrolytic and Water Balance Substance into Peripheral Vein, Percutaneous Approach (ICD-10-PCS; principal; 2016-12-09)
DX: T78.3XXA Angioneurotic edema, initial encounter (principal); G43.009 Migraine without aura, not intractable, without status migrainosus; J45.909 Unspecified asthma, uncomplicated; E86.9 Volume depletion, unspecified
CPT/HCPCS: 85025-PO; 96374; J1100; J1200; J1885; J2405

== ENCOUNTER 2017-05-29 09:49 | Observation (INO) | payer MEDICAID ==
[2017-05-29] MEDS ORDERED: ONDANSETRON 4 MG/2 ML VIAL ONE (10:02)
[2017-05-29] MEDS ORDERED: NS 1,000 ML IV ONE ×2 (10:16→10:51)
[2017-05-29] MEDS ORDERED: FAMOTIDINE 20 MG in NS 100 ML IV ONE (10:16)
[2017-05-29 10:22] LABS: PLATELET COUNT 446 10^3/uL (150-400)
[2017-05-29] MEDS ORDERED: FAMOTIDINE 20 MG/2 ML SDV ONE (10:23)
[2017-05-29] MEDS ORDERED: HALOPERIDOL LACT 5 MG/ML INJ IVP ONE (10:29)
--- NOTE | 2017-05-29 10:33 | EDPHY ---
H & P Time Seen by Provider: 05/29/17 09:55 HPI/ROS: HPI Abdominal pain, nausea and vomiting. 21-year-old female by private vehicle. This patient has a history of multiple visits to the emergency department and extensive workup for intermittent chronic abdominal pain which described as cramping and burning and throughout her upper and mid abdomen. She has had multiple endoscopies and colonoscopy as well as multiple CT scans. She has been told that the etiology the pain is thought to be an autoimmune process. However, she has not been diagnosed with Crohn's or ulcerative colitis. She reports that for the last 3 days she has had worsening abdominal pain with associated vomiting. She reports today she has not been able to keep any fluids down. She also reports having some intermittent diarrhea. No bloody or melenic stool. Last menstrual period was 1 week ago. She tried to get in to see her primary care physician Dr. Simon but was not able to get an appointment. She has recently been dry heaving. ROS: Constitutional: No fever, no chills. No weakness. Eyes: No discharge. No changes in vision. ENT: No sore throat. No nasal congestion or rhinorrhea. Respiratory: No cough. No shortness of breath. Cardiac: No chest pain, no palpitations. Gastrointestinal: As above. Genitourinary: No hematuria. No dysuria or increased frequency with urination. Musculoskeletal: No back pain. No neck pain. No myalgias or arthralgias. Skin: No rashes. Neurological: No headache. No focal weakness or altered sensation. Past medical history: As above, asthma. Her primary care physician is Dr. Simon. Social history: Denies smoking. Denies IV drugs and street drugs. No alcohol. Here by herself. Physical Exam: General Appearance: Alert, very anxious and emotionally labile. This patient is responding to questions appropriately and in full sentences. This patient appears well-hydrated and well-nourished. Eyes: Pupils equal and round no pallor or injection. No lid edema, erythema or injection. Respiratory: There are no retractions, lungs are clear to auscultation with good air movement bilaterally. Cardiovascular: Regular rate and rhythm. No murmur. Gastrointestinal: Abdomen is soft with mild to moderate vague tenderness in the mid and upper abdomen, no masses, bowel sounds normal. No focal tenderness at McBurney's point. No Cobos sign. Neurological: Motor sensory function is grossly intact. Cranial nerves are normal. Gait is normal. Skin: Warm and dry, no rashes. Musculoskeletal: Neck is supple and nontender. Extremities are symmetrical. All joints range without pain or impingement. Psychiatric: No agitation. No depression. Database: EKG: Imaging: CT scan of abdomen and pelvis: Significant for extensive inflammatory changes and bowel wall thickening involving the transverse colon and to a lesser degree wall thickening is seen in the distal esophagus, the gastric wall and parts of the small bowel. No obstruction. No free air or abscess. Results were discussed with staff radiologist Dr. Karl Mojica. Procedures: Emergency department course: IV was placed. Vital signs reviewed. She is afebrile. Mildly tachycardic in triage. She was started on IV normal saline with 1 L to be given over the next hour. She was initially given 4 mg of IV Zofran, she was given 20 mg of IV Pepcid and 2.5 mg of IV Haldol. I have reviewed her medical records. She was last admitted for a similar presentation in late October of 2016. At that time she had a CT scan done which showed marked thickening of the transverse colon, questionable colitis versus Crohn's disease was the diagnosis. 10:55 a.m., patient just given IV Haldol as above. Difficult to get a repeat exam on her at this time because she does not want to lay flat. I discussed CT imaging. She consents to this. CT abdomen and pelvis with IV contrast ordered. 11:20 a.m., patient complains of continued pain despite Haldol. Her nausea is better. She was given 0.5 mg of IV hydromorphone. 12:25 p.m., patient re-evaluated. She is much more comfortable after above medications. I discussed results of her blood work as well as CT scan. I explained we would admit her to our hospitalist service for further evaluation and management. She consents. Hospitalist paged. 12:55 p.m., spoke with on-call hospitalist Dr. Louis. Case discussed in detail with him. He accepts this patient for admission. I have filled out the appropriate transfer paperwork. The patient's remaining emergency department course under my care has been uneventful. She was admitted to the hospitalist service in stable and improved condition. Differential Diagnosis: The differential diagnosis on this patient includes but is not limited to cyclic vomiting syndrome, abdominal migraine syndrome, colitis. Acute cholecystitis, appendicitis, volvulus, other surgical etiology unlikely. This represents a partial list of diagnoses considered. These considerations are based on history, physical exam, past history, reassessment and diagnostic testing. Smoking Status: Never smoked Constitutional: Initial Vital Signs Temperature (C) 36.6 C 05/29/17 09:56 Heart Rate 115 H 05/29/17 09:56 Respiratory Rate 20 05/29/17 09:56 Blood Pressure 137/62 H 05/29/17 09:56 O2 Sat (%) 94 05/29/17 09:56 O2 Delivery Mode Room Air Allergies/Adverse Reactions: metoclopramide HCl [From Reglan] Allergy (Intermediate, Verified 12/09/16 19:23) Anxiety Home Medications: Medication Instructions Recorded Albuterol Hfa Anes Only [Proair 1 - 2 puffs IH Q4-6PRN PRN 11/02/16 Hfa Icu (*)] Ondansetron Odt [Zofran Odt] 4 - 8 mg PO Q4PRN PRN #4 tab 12/09/16 diphenhydrAMINE [Benadryl 25 MG 25 mg PO 12/09/16 (*)] predniSONE 40 mg PO DAILY #8 tab 12/09/16 Medical Decision Making - Diagnostics Imaging Results: Imaging Impressions Abdomen CT 05/29/17 10:55 Impression: 1. Suspect nonspecific mild gastroenteritis and mild distal esophagitis in this patient with recurrent nausea and vomiting. 2. Very abnormal appearance of the colon, particularly at the level of the transverse colon, where there is wall thickening and submucosal edema. Reportedly, based upon prior endoscopy, this has not been consistent with IBD such as Crohn or ulcerative colitis. There is no pneumatosis or pneumoperitoneum. 3. Moderate-volume ascites. Findings were discussed with John Carlisle MD at 12:11, on 05/29/2017. - Data Points Laboratory Results: Laboratory Results 05/29/17 10:01 05/29/17 10:01 05/29/17 05/29/17 05/29/17 10:01 10:01 10:01 WBC RBC Hgb Hct MCV MCH MCHC RDW Plt Count MPV Neut % (Auto) Lymph % (Auto) [place] % (Auto) Eos % (Auto) Baso % (Auto) Nucleat RBC Rel Count Absolute Neuts (auto) Absolute Lymphs (auto) Absolute Monos (auto) Absolute Eos (auto) Absolute Basos (auto) Absolute Nucleated RBC Immature Gran % Immature Gran # Sodium 140 mEq/L mEq/L (135-145) Potassium 4.5 mEq/L mEq/L (3.5-5.2) Chloride 108 mEq/L mEq/L (97-110) Carbon Dioxide 20 mEq/l L mEq/l (22-31) Anion Gap 12 mEq/L mEq/L (8-16) BUN 7 mg/dL mg/dL (7-23) Creatinine 0.6 mg/dL mg/dL (0.6-1.0) Estimated GFR > 60 Glucose 108 mg/dL H mg/dL (70-100) Calcium 9.4 mg/dL mg/dL (8.5-10.4) Total Bilirubin 0.6 mg/dL mg/dL (0.1-1.4) Conjugated Bilirubin 0.3 mg/dL mg/dL (0.0-0.5) Unconjugated Bilirubin 0.3 mg/dL mg/dL (0.0-1.1) AST 22 IU/L IU/L (14-46) ALT 19 IU/L IU/L (9-52) Alkaline Phosphatase 81 IU/L IU/L (38-126) Total Protein 7.3 g/dL g/dL (6.3-8.2) Albumin 4.1 g/dL g/dL (3.5-5.0) Lipase 72 IU/L IU/L (23-300) Beta HCG, Qual NEGATIVE 05/29/17 10:01 WBC 15.86 10^3/uL H 10^3/uL (3.80-9.50) RBC 5.52 10^6/uL H 10^6/uL (4.18-5.33) Hgb 16.8 g/dL H g/dL (12.6-16.3) Hct 50.1 % H % (38.0-47.0) MCV 90.8 fL fL (81.5-99.8) MCH 30.4 pg pg (27.9-34.1) MCHC 33.5 g/dL g/dL (32.4-36.7) RDW 13.1 % % (11.5-15.2) Plt Count 446 10^3/uL H 10^3/uL (150-400) MPV 9.1 fL fL (8.7-11.7) Neut % (Auto) 82.4 % H % (39.3-74.2) Lymph % (Auto) 11.1 % L % (15.0-45.0) [place] % (Auto) 5.1 % % (4.5-13.0) Eos % (Auto) 0.6 % % (0.6-7.6) Baso % (Auto) 0.3 % % (0.3-1.7) Nucleat RBC Rel Count 0.0 % % (0.0-0.2) Absolute Neuts (auto) 13.06 10^3/uL H 10^3/uL (1.70-6.50) Absolute Lymphs (auto) 1.76 10^3/uL 10^3/uL (1.00-3.00) Absolute Monos (auto) 0.81 10^3/uL H 10^3/uL (0.30-0.80) Absolute Eos (auto) 0.10 10^3/uL 10^3/uL (0.03-0.40) Absolute Basos (auto) 0.05 10^3/uL 10^3/uL (0.02-0.10) Absolute Nucleated RBC 0.00 10^3/uL 10^3/uL (0-0.01) Immature Gran % 0.5 % % (0.0-1.1) Immature Gran # 0.08 10^3/uL 10^3/uL (0.00-0.10) Sodium Potassium Chloride Carbon Dioxide Anion Gap BUN Creatinine Estimated GFR Glucose Calcium Total Bilirubin Conjugated Bilirubin Unconjugated Bilirubin AST ALT Alkaline Phosphatase Total Protein Albumin Lipase Beta HCG, Qual Medications Given: Discontinued Medications Haloperidol Lactate (Haldol Injection) 2.5 mg IVP EDNOW ONE Stop: 05/29/17 10:30 Last Admin: 05/29/17 10:53 Dose: 2.5 mg Hydromorphone HCl (Dilaudid) 0.5 mg IVP EDNOW ONE Stop: 05/29/17 11:19 Last Admin: 05/29/17 11:39 Dose: 0.5 mg Sodium Chloride (Ns) 1,000 mls @ 0 mls/hr IV EDNOW ONE; Wide Open PRN Reason: Protocol Stop: 05/29/17 10:17 Last Admin: 05/29/17 10:26 Dose: 1,000 mls Famotidine 20 mg/ Sodium (Chloride) 102 mls @ 408 mls/hr IV EDNOW ONE Stop: 05/29/17 10:30 Last Admin: 05/29/17 10:25 Dose: 102 mls Sodium Chloride (Ns) 1,000 mls @ 0 mls/hr IV EDNOW ONE; Wide Open PRN Reason: Protocol Stop: 05/29/17 10:52 Last Admin: 05/29/17 10:55 Dose: 1,000 mls Departure - Departure Disposition: [facility] In[facility] Acute Clinical Impression: Abdominal pain, Vomiting, Colitis, Leukocytosis
[2017-05-29] MEDS ORDERED: IOPAMIDOL (ISOVUE-300) 100 ML BTL ONE (11:04)
[2017-05-29] MEDS ORDERED: HYDROmorphONE/DILAUDID 2 MG/ML INJ IVP ONE (11:18)
[2017-05-29] MEDS ORDERED: NS 1,000 ML IV SCH (16:30)
[2017-05-29] MEDS ORDERED: ACETAMINOPHEN 325 MG TAB PO PRN (16:30)
[2017-05-29] MEDS ORDERED: PROMETHAZINE HCL 25 MG/ML INJ IVP PRN (16:30)
[2017-05-29] MEDS ORDERED: ONDANSETRON DISINTEGRATING 4 MG TAB PO PRN (16:30)
[2017-05-29] MEDS ORDERED: ONDANSETRON 4 MG/2 ML VIAL IVP PRN (16:30)
[2017-05-29] MEDS: HYDROmorphone HCL/NS 0.5 MG/ML SYR IVP PRN ×2 (17:09→22:32)
[2017-05-29] MEDS: oxyCODONE IR 5 MG TAB PO PRN (20:52)
--- NOTE | 2017-05-29 21:17 | GHP ---
[f rep st] HISTORY AND PHYSICAL DATE OF ADMISSION: 05/29/2017 CHIEF COMPLAINT: Abdominal pain, nausea, and vomiting. HISTORY: This is a 21-year-old female who has a fairly longstanding history of recurrent bouts of ab dominal pain associated with nausea, vomiting, and diarrhea. She has been hospitalized several times for this including once here at this hospital in 2017. She has undergone several colonoscopies and upper endoscopies as well as multiple imaging studies without any clear diagnosis being made. She st ates that her symptoms recur at irregular but frequent intervals, anywhere from a few times a month t o every couple of months. She does not note any precipitating factors or anything that seems to help avoid these episodes from occurring. She has been working on figuring out what is causing the sympt oms with her primary care physician. However, at this time underlying etiology still remains unclear . PAST MEDICAL HISTORY: 1. Chronic recurrent abdominal pain. 2. Asthma. PAST SURGICAL HISTORY: Denies. SOCIAL HISTORY: Denies alcohol, tobacco, marijuana, or any other street drugs. FAMILY HISTORY: Denies. REVIEW OF SYSTEMS: Ten-point review of systems obtained and otherwise negative except as per HPI. HOME MEDICATIONS: Oral control. ALLERGIES: Metoclopramide. PHYSICAL EXAM: BP 109/57, heart rate 92, respiratory rate 16, O2 sats 94% on room air, temperature 3 7.2. GENERAL APPEARANCE: This is a thin female. She is awake and alert. She is in mild distress. EYES: Anicteric. HENT: Oropharynx clear. CARDIOVASCULAR: Regular rate and rhythm, no MRG. PULMONARY: CTA bilaterally. ABDOMEN: Soft, bowel sounds are present, difficult to elicit any real tenderness palpation. EXTREMITIES: No clubbing, cyanosis, or edema. SKIN: Warm, dry, well p erfused. NEURO/PSYCH: Oriented and appropriate, pleasant. CLINICAL DATA: Abdominal CT, personally reviewed and interpreted, is noticeable for nonspecific mild gastroenteritis and mild distal esophagitis as well as a very abnormal colon particularly at the lev el of the transverse colon where Radiology notes wall thickening and submucosal edema and moderate vo lume ascites. LABORATORY DATA: White blood cell count of 15.8, hemoglobin 16.8, hematocrit of 50.1, platelets of 4 46. Chemistry is unremarkable. Urinalysis unremarkable. ASSESSMENT/PLAN: This is a 21-year-old female with recurrent abdominal pain associated with nausea, vomiting, and diarrhea of uncertain etiology returning with same. 1. Abdominal pain/nausea, vomiting. Again, this is in the setting of recurrent abnormal CT scan magda wing thickened, edematous colon. However, prior endoscopy has not been consistent with any sort of i nflammatory bowel disease. The patient has undergone several colonoscopies as well as endoscopies wi th ultimate sense by GI that this is more likely to be some sort of rheumatologic process. She has h ad screening rheumatology labs which also have been unremarkable including rheumatoid factor, BLOSSOM, my eloperoxidase antibody, proteinase and celiac screen. At this point with recurrent symptoms and exte nsive workup already completed that has been unremarkable, uncertain what further to do other than pr ovide symptomatic management. If she is not improving in the morning, I would have a low threshold t o reconsult GI and/or Rheumatology. Will start IV fluids, IV antiemetics, and IV opiates as needed f or pain. 2. Polycythemia. This is likely related to significant hypovolemia and volume depletion. Will hydr ate and recheck in the morning. Given that all her cell counts are elevated, unclear if this all rep resents volume contracture rather than any other abnormality at this point. 3. Gastroenteritis/esophagitis. Again, this is noted on CT imaging. This is in the setting of prof ound nausea, vomiting, and possibly related to same. Again, if symptomatically not improving in the morning would have a low threshold for repeat GI consult. 4. Observation status. Will determine need for inpatient stay pending on clinical status in the [facility]. 5. Patient is new to my care. Old records reviewed, summarized as per HPI and past medical history. Care plan reviewed with ER physician including plans for further workup of recurrent abdominal pain . /[id number]/MODL
[2017-05-30] MEDS: HYDROmorphone HCL/NS 0.5 MG/ML SYR IVP PRN (02:53)
[2017-05-30 04:47] VITALS: PULSE 97
[2017-05-30 05:43] LABS: PLATELET COUNT 328 10^3/uL (150-400)
[2017-05-30 07:28] VITALS: BP 108/61; RESP 12; TEMP 98.1; O2SAT 95
[2017-05-30] MEDS ORDERED: PANTOPRAZOLE SODIUM 40 MG VIAL IVP SCH (09:00)
[2017-05-30] MEDS: oxyCODONE IR 5 MG TAB PO PRN (09:56)
--- NOTE | 2017-05-30 17:25 | GDS ---
[f rep st] DISCHARGE SUMMARY DISCHARGE DIAGNOSES: Include: 1. Gastritis/esophagitis. 2. Chronic abdominal pain and nausea. HISTORY OF PRESENT ILLNESS: A 21-year-old female with history of recurrent abdominal discomfort, sourav sea, and bloating, who presents with similar symptoms. For details of the patient's initial presenta tion, please see the history and physical dated 05/29/2017. CONSULTATIVE SERVICES: None. PROCEDURES: On 05/29/2017, patient had a CT of the abdomen, which showed gastritis and esophagitis a s well as transverse colon inflammation and ascites. HOSPITAL COURSE BY ISSUE: Acute abdominal pain: Patient presented with severe abdominal pain, nause a, and vomiting. Was admitted, hydrated overnight with IV fluids, treated with IV antiemetics and H2 blockers. The morning after presentation, the patient's pain was improved and her nausea had subsid ed. We initiated IV PPI for her gastritis/esophagitis (likely related to vomiting) and slowly advanc ed her diet. On the day of disposition, patient was tolerating normal oral intake. We are recommend ing that she continue the proton pump inhibitor in the outpatient setting and follow with Gastroenter ology. I suspect that the proton pump inhibitor will help her gastritis and esophagitis, and concern ed that there is another explanation for the transverse colon inflammation. Patient has historically undergone many EGD's and colonoscopies, and will likely need ongoing monitoring and management by [facility]. She does have the contact number for an outpatient manager camp who she will b e contacting for followup. MEDICATIONS AT DISPOSITION: Please reference the med rec printed on 05/30/2017. FOLLOWUP APPOINTMENTS: Include with Dr. Beck from GI for long-term management of her chronic ab dominal pain, nausea, and vomiting. PENDING STUDIES: At the time of this dictation, none. TIME SPENT: I spent greater than 30 minutes in the planning and coordination of this discharge. /[id number]/MODL
== END 2017-05-30 13:56 | disposition home or self-care (01) ==
LOC: CED 09:49 → INTOOBSV 12:56 → CEDHOLD 12:56 → F3E 14:33
PROVIDERS: ADMIT Internal Medicine; ATTEND Hospitalist
DX: K29.70 Gastritis, unspecified, without bleeding (principal); K20.9 Esophagitis, unspecified; R93.3 Abnormal findings on diagnostic imaging of other parts of digestive tract; D72.829 Elevated white blood cell count, unspecified; D75.1 Secondary polycythemia; E86.9 Volume depletion, unspecified; R11.2 Nausea with vomiting, unspecified; R10.9 Unspecified abdominal pain; J45.909 Unspecified asthma, uncomplicated
CPT/HCPCS: 74177; 96361; 96365; 96375; 99285; G0378; 80048-PO; 80076-PO; 81003-PO; 81015-PO; 83690-PO; 84703-PO; 85025-PO; J1170; J1630; J2405; Q9967